=== PATIENT | male | born 1935 | race Caucasian/White ===

== ENCOUNTER 2016-08-15 18:06 | Inpatient (IN) | payer OTHER ==
[~2016-08-15] VITALS: Ht 175.3 cm; Wt 90.4 kg
[2016-08-15] MEDS ORDERED: SODIUM CHLORIDE 0.9% 1,000 ML IVB ONE (20:05)
[2016-08-15 20:16] LABS: Basophils # (auto) 0 uL; Basophils % (auto) 0.2 % (0.0-2.0); Eosinophils # (auto) 0.1 uL; Eosinophils % (auto) 1.5 % (0.0-7.0); Hematocrit 30.1 % (41.0-53.0); Hemoglobin 9.5 g/dL (13.5-17.5); Lymphocytes # (auto) 1.1 uL; Lymphocytes % (auto) 19.8 % (10.0-50.0); Mean Corpuscular Hemoglobin 29.3 pg (28.0-32.0); Mean Corpuscular Hgb Conc. 31.6 g/dL (32.0-36.0); Mean Corpuscular Volume 92.9 fL (80.0-100.0); Mean Platelet Volume 11.9 fL (7.4-10.4); Monocytes # (auto) 0.3 uL; Neutrophils # (auto) 4.1 uL; Neutrophils % (auto) 73.5 % (37.0-80.0); Platelet Count (auto) 67 10^3/uL (140-450); White Blood Cell 5.5 10^3/uL (4.4-10.8)
[2016-08-15 20:23] LABS: Albumin 3.1 g/dL (3.4-5.0); BUN/Creatinine Ratio 27.4; Calcium 8.6 mg/dL (8.5-10.1); Potassium 4.8 mmol/L (3.5-5.1)
[2016-08-15 20:31] LABS: Bilirubin, Total 0.4 mg/dL (0.2-1.0); Total Protein 6.8 g/dL (6.4-8.2)
[2016-08-15 20:33] LABS: INR 1.17 (0.9-1.15); Partial Thromboplastin Time 34.3 sec (22.64-33.71); Prothrombin Time 12.1 sec (9.37-12.3)
[2016-08-15 20:45] LABS: Large Platelets FEW; Platelet Estimate Decreased
[2016-08-15] MEDS ORDERED: PANTOPRAZOLE SODIUM 40 MG/10 ML VIAL IV ONE (22:45)
[2016-08-15 22:46] LABS: Urine Bilirubin Negative (Negative); Urine Color Yellow (Yellow); Urine Glucose Normal (Normal); Urine Hyaline Cast FEW /lpf (0 - 2); Urine Ketone Negative (Negative); Urine Mucus FEW (None Seen); Urine Nitrite Negative (Negative); Urine RBC 11 /hpf (0 - 3); Urine Urobilinogen Normal (Negative); Urine WBC Clumps PRESENT /hpf (None Seen)
[2016-08-15 22:47] LABS: Urine Blood 1+ /uL (Negative)
[2016-08-15] MEDS ORDERED: NOREPINEPHRINE BITARTRATE 250 ML IV ONE (23:38)
[2016-08-15] MEDS ORDERED: NOREPINEPHRINE BITARTRATE 250 ML IV SCH (23:45)
[2016-08-16] VITALS (12 sets, daily range): BP systolic 71–142; BP diastolic 23–79
[2016-08-16] MEDS ORDERED: FUROSEMIDE 40 MG/4 ML VIAL IV ONE (01:00)
[2016-08-16] MEDS ORDERED: NITROGLYCERIN 0.4 MG SL TAB SL PRN (01:00)
[2016-08-16] MEDS ORDERED: PANTOPRAZOLE SODIUM 40 MG/10 ML VIAL IV ONE (01:00)
[2016-08-16] MEDS ORDERED: DEXTROSE (50%) 50ML SYRG IV PRN (01:00)
[2016-08-16] MEDS ORDERED: MORPHINE SULF INJ 2 MG/ML SYRINGE 1ML IV PRN (01:00)
[2016-08-16] MEDS ORDERED: LEVOFLOXACIN 500MG 100 ML IV ONE (01:00)
[2016-08-16] MEDS ORDERED: methylPREDNISolone SOD SUCC 125 MG/2 ML VL IV ONE (01:00)
[2016-08-16] MEDS ORDERED: LACTULOSE 20Gm/30ML SOLN PO PRN (01:00)
[2016-08-16] MEDS ORDERED: cefTRIAXone 1GM/50ML D5W 50 ML IV ONE (01:00)
[2016-08-16 01:55] LABS: Temperature: 21.9 C (20.0-25.0)
[2016-08-16] MEDS ORDERED: ETOMIDATE (2MG/ML) 20ML VIAL IV ONE ×2 (03:02→04:15)
[2016-08-16] MEDS ORDERED: SUCCINYLCHOLINE CHLORIDE 20 MG/ML 10ML VIAL IV ONE ×2 (03:03→04:15)
[2016-08-16] MEDS ORDERED: MIDAZOLAM DRIP 100 mg/100mL NS 100 ML IV ONE (03:13)
[2016-08-16] MEDS: MIDAZOLAM DRIP 100 mg/100mL NS 100 ML IV SCH ×2 (03:29→10:55)
[2016-08-16] MEDS: IPRATROPIUM BROM 0.5 MG/2.5ML INH SOL NEB SCH ×6 (03:50→22:23)
[2016-08-16] MEDS: ALBUTEROL SULF 2.5 MG/0.5ML(0.5%) NEB SOLN NEB SCH ×6 (03:50→22:23)
[2016-08-16] MEDS ORDERED: DOBUTamine 1000MCG/ML 250 ML IV SCH (04:15)
[2016-08-16] MEDS ORDERED: ATROPINE SULF 0.5 MG/5ML SYR IV ONE (05:45)
[2016-08-16] MEDS: ACCU-CHEK COMFORT CURVE STRIP VI SCH ×4 (06:15→23:57)
[2016-08-16] MEDS: InsuLIN REG 1unit/0.01ml Soln (100units/ml) SC SCH ×4 (06:19→23:58)
[2016-08-16] MEDS ORDERED: FURO40TA PO (07:13)
[2016-08-16] MEDS ORDERED: CARV3.1213 OR (07:13)
[2016-08-16] MEDS ORDERED: ATOR20TA50 PO (07:13)
[2016-08-16] MEDS ORDERED: SEVE800T8 PO (07:13)
[2016-08-16] MEDS ORDERED: ALLO100T PO (07:13)
[2016-08-16] MEDS ORDERED: TERA5CAP42 PO (07:14)
[2016-08-16] MEDS ORDERED: BENZ100C97 PO (07:14)
[2016-08-16] MEDS ORDERED: ENOXAPARIN SOD 30 MG/0.3 ML SYRINGE SC SCH (10:00)
[2016-08-16] MEDS: PANTOPRAZOLE SODIUM 40 MG/10 ML VIAL IV SCH (10:03)
[2016-08-16] MEDS ORDERED: FUROSEMIDE 40 MG/4 ML VIAL IV SCH (14:00)
[2016-08-16 15:13] LABS: BUN/Creatinine Ratio 27.3; Calcium 8.9 mg/dL (8.5-10.1); Potassium 4.6 mmol/L (3.5-5.1)
[2016-08-16 15:29] LABS: Basophils # (auto) 0 uL; Basophils % (auto) 0.2 % (0.0-2.0); Eosinophils # (auto) 0 uL; Eosinophils % (auto) 0.1 % (0.0-7.0); Hematocrit 29.7 % (41.0-53.0); Hemoglobin 9.4 g/dL (13.5-17.5); Lymphocytes # (auto) 0.9 uL; Lymphocytes % (auto) 8.9 % (10.0-50.0); Mean Corpuscular Hemoglobin 29.1 pg (28.0-32.0); Mean Corpuscular Hgb Conc. 31.7 g/dL (32.0-36.0); Mean Corpuscular Volume 91.7 fL (80.0-100.0); Mean Platelet Volume 12.4 fL (7.4-10.4); Monocytes # (auto) 0 uL; Monocytes % (auto) 0.3 % (0.0-12.0); Neutrophils # (auto) 8.8 uL; Neutrophils % (auto) 90.5 % (37.0-80.0); Platelet Count (auto) 76 10^3/uL (140-450); Red Cell Distribution Width 17.4 % (11.6-16.0); SUSPECT VIEW TRANSMISSION; White Blood Cell 9.8 10^3/uL (4.4-10.8)
[2016-08-17] VITALS (25 sets, daily range): BP systolic 101–148; BP diastolic 47–82
[2016-08-17] MEDS ORDERED: LEVOFLOXACIN 250MG 50 ML IV SCH (01:00)
[2016-08-17] MEDS: cefTRIAXone 1GM/50ML D5W 50 ML IV SCH (01:08)
[2016-08-17] MEDS: ALBUTEROL SULF 2.5 MG/0.5ML(0.5%) NEB SOLN NEB SCH ×6 (02:18→22:56)
[2016-08-17] MEDS: IPRATROPIUM BROM 0.5 MG/2.5ML INH SOL NEB SCH ×6 (02:18→22:56)
[2016-08-17 04:11] LABS: Basophils # (auto) 0 uL; Basophils % (auto) 0.1 % (0.0-2.0); Eosinophils # (auto) 0 uL; Hemoglobin 9.3 g/dL (13.5-17.5); Lymphocytes # (auto) 0.9 uL; Mean Corpuscular Hemoglobin 29.3 pg (28.0-32.0); Mean Corpuscular Volume 91.4 fL (80.0-100.0); Mean Platelet Volume 11.8 fL (7.4-10.4); Monocytes # (auto) 0.2 uL; Monocytes % (auto) 2.1 % (0.0-12.0); Neutrophils # (auto) 10.6 uL; Neutrophils % (auto) 89.8 % (37.0-80.0); Platelet Count (auto) 88 10^3/uL (140-450); Red Cell Distribution Width 17.9 % (11.6-16.0); SUSPECT VIEW TRANSMISSION; White Blood Cell 11.8 10^3/uL (4.4-10.8)
[2016-08-17 04:32] LABS: Albumin 2.7 g/dL (3.4-5.0); Bilirubin, Total 0.4 mg/dL (0.2-1.0); Calcium 8.8 mg/dL (8.5-10.1); Potassium 4.8 mmol/L (3.5-5.1); Total Protein 5.8 g/dL (6.4-8.2)
[2016-08-17] MEDS ORDERED: ALBUMIN 25% 100 ML IV ONE (05:45)
[2016-08-17] MEDS ORDERED: FUROSEMIDE 20 MG/2 ML VIAL IV ONE (05:45)
[2016-08-17] MEDS: ACCU-CHEK COMFORT CURVE STRIP VI SCH ×2 (06:32→11:18)
[2016-08-17] MEDS: InsuLIN REG 1unit/0.01ml Soln (100units/ml) SC SCH ×3 (06:33→18:00)
[2016-08-17] MEDS: PANTOPRAZOLE SODIUM 40 MG/10 ML VIAL IV SCH (10:06)
[2016-08-17] MEDS ORDERED: MIDAZOLAM DRIP 100 mg/100mL NS 100 ML IV ONE (12:18)
[2016-08-17] MEDS: MIDAZOLAM DRIP 100 mg/100mL NS 100 ML IV SCH ×3 (12:37→23:02)
[2016-08-17] MEDS: D5W 5% 1,000 ML IV SCH (12:45)
[2016-08-17 19:48] LABS: Basophils # (auto) 0 uL; Basophils % (auto) 0.1 % (0.0-2.0); Eosinophils # (auto) 0 uL; Hematocrit 29.8 % (41.0-53.0); Hemoglobin 9.6 g/dL (13.5-17.5); Lymphocytes # (auto) 1.5 uL; Lymphocytes % (auto) 13.3 % (10.0-50.0); Mean Corpuscular Hemoglobin 29.2 pg (28.0-32.0); Mean Corpuscular Hgb Conc. 32.1 g/dL (32.0-36.0); Mean Platelet Volume 11.7 fL (7.4-10.4); Monocytes # (auto) 0.6 uL; Monocytes % (auto) 5.3 % (0.0-12.0); Neutrophils # (auto) 9.4 uL; Neutrophils % (auto) 81.3 % (37.0-80.0); Platelet Count (auto) 87 10^3/uL (140-450); Red Cell Distribution Width 18.3 % (11.6-16.0); SUSPECT VIEW TRANSMISSION; White Blood Cell 11.6 10^3/uL (4.4-10.8)
[2016-08-17 20:02] LABS: BUN/Creatinine Ratio 25.7; Calcium 8.8 mg/dL (8.5-10.1); Potassium 4.6 mmol/L (3.5-5.1)
[2016-08-18] VITALS (94 sets, daily range): BP systolic 109–156; BP diastolic 49–106
[2016-08-18] MEDS: ACCU-CHEK COMFORT CURVE STRIP VI SCH ×6 (00:11→23:28)
[2016-08-18] MEDS: cefTRIAXone 1GM/50ML D5W 50 ML IV SCH (01:08)
[2016-08-18] MEDS: ALBUTEROL SULF 2.5 MG/0.5ML(0.5%) NEB SOLN NEB SCH ×6 (02:35→22:32)
[2016-08-18] MEDS: IPRATROPIUM BROM 0.5 MG/2.5ML INH SOL NEB SCH ×6 (02:35→22:32)
[2016-08-18 03:49] LABS: Basophils # (auto) 0 uL; Basophils % (auto) 0.2 % (0.0-2.0); Eosinophils # (auto) 0 uL; Hemoglobin 9.3 g/dL (13.5-17.5); Lymphocytes # (auto) 1.9 uL; Lymphocytes % (auto) 18.3 % (10.0-50.0); Mean Corpuscular Hemoglobin 29.1 pg (28.0-32.0); Mean Corpuscular Hgb Conc. 32.1 g/dL (32.0-36.0); Mean Corpuscular Volume 90.7 fL (80.0-100.0); Mean Platelet Volume 11.8 fL (7.4-10.4); Monocytes # (auto) 0.6 uL; Monocytes % (auto) 5.7 % (0.0-12.0); Neutrophils # (auto) 7.8 uL; Neutrophils % (auto) 75.8 % (37.0-80.0); Platelet Count (auto) 87 10^3/uL (140-450); Red Cell Distribution Width 18.2 % (11.6-16.0); SUSPECT VIEW TRANSMISSION; White Blood Cell 10.2 10^3/uL (4.4-10.8)
[2016-08-18 04:18] LABS: Albumin 2.9 g/dL (3.4-5.0); Bilirubin, Total 0.4 mg/dL (0.2-1.0); Calcium 9.2 mg/dL (8.5-10.1); Magnesium 2.5 mg/dL (1.6-2.6); Potassium 4.2 mmol/L (3.5-5.1); Total Protein 5.9 g/dL (6.4-8.2)
[2016-08-18 04:37] LABS: INR 1.27 (0.9-1.15); Prothrombin Time 13.1 sec (9.37-12.3)
[2016-08-18] MEDS: InsuLIN REG 1unit/0.01ml Soln (100units/ml) SC SCH ×5 (05:46→22:00)
[2016-08-18] MEDS: D5W 5% 1,000 ML IV SCH (09:08)
[2016-08-18] MEDS: PANTOPRAZOLE SODIUM 40 MG/10 ML VIAL IV SCH (09:09)
[2016-08-18] MEDS: MIDAZOLAM DRIP 100 mg/100mL NS 100 ML IV SCH (09:09)
[2016-08-18] MEDS ORDERED: D5W IV ONE (11:45)
[2016-08-18] MEDS ORDERED: DOXYCYCLINE HYC IV ONE (11:45)
[2016-08-18] MEDS ORDERED: D5W IV SCH ×2 (11:45→22:00)
[2016-08-18] MEDS ORDERED: DOXYCYCLINE HYC IV SCH ×2 (11:45→22:00)
[2016-08-18] MEDS ORDERED: PERMETHRIN 5 % TOPICAL CREAM 60GM TOP ONE (14:00)
[2016-08-18] MEDS: FLUCONAZOLE 200MG/100ML 100 ML IV SCH (14:09)
[2016-08-18] MEDS: AZITHROMYCIN 500MG/D5W 250ML 250 ML IV SCH (14:09)
[2016-08-18 19:30] LABS: BUN/Creatinine Ratio 25.3; Calcium 8.3 mg/dL (8.5-10.1); Potassium 4.2 mmol/L (3.5-5.1)
[2016-08-18] MEDS ORDERED: MIDAZOLAM DRIP 100 mg/100mL NS 100 ML IV ONE (20:13)
[2016-08-19] VITALS (94 sets, daily range): BP systolic 82–153; BP diastolic 33–82
[2016-08-19] MEDS: cefTRIAXone 1GM/50ML D5W 50 ML IV SCH (00:12)
[2016-08-19] MEDS: ALBUTEROL SULF 2.5 MG/0.5ML(0.5%) NEB SOLN NEB SCH ×5 (02:40→22:21)
[2016-08-19] MEDS: IPRATROPIUM BROM 0.5 MG/2.5ML INH SOL NEB SCH ×4 (02:40→22:21)
[2016-08-19 04:09] LABS: Basophils # (auto) 0 uL; Basophils % (auto) 0.2 % (0.0-2.0); Eosinophils # (auto) 0.1 uL; Eosinophils % (auto) 1.5 % (0.0-7.0); Hematocrit 28.8 % (41.0-53.0); Hemoglobin 9.2 g/dL (13.5-17.5); Lymphocytes # (auto) 1.7 uL; Lymphocytes % (auto) 24.1 % (10.0-50.0); Mean Corpuscular Hemoglobin 29.1 pg (28.0-32.0); Mean Corpuscular Volume 90.7 fL (80.0-100.0); Mean Platelet Volume 11.3 fL (7.4-10.4); Monocytes # (auto) 0.3 uL; Monocytes % (auto) 4.8 % (0.0-12.0); Neutrophils % (auto) 69.4 % (37.0-80.0); Platelet Count (auto) 69 10^3/uL (140-450); Red Cell Distribution Width 17.8 % (11.6-16.0); White Blood Cell 7.2 10^3/uL (4.4-10.8)
[2016-08-19] MEDS: D5W 5% 1,000 ML IV SCH (04:15)
[2016-08-19 04:27] LABS: INR 1.2 (0.9-1.15); Prothrombin Time 12.4 sec (9.37-12.3)
[2016-08-19 04:34] LABS: Calcium 8.5 mg/dL (8.5-10.1); Potassium 4.1 mmol/L (3.5-5.1)
[2016-08-19 04:37] LABS: Albumin 2.8 g/dL (3.4-5.0); BUN/Creatinine Ratio 23.8; Magnesium 2.4 mg/dL (1.6-2.6)
[2016-08-19 04:40] LABS: Bilirubin, Total 0.3 mg/dL (0.2-1.0); Total Protein 5.8 g/dL (6.4-8.2)
[2016-08-19] MEDS: InsuLIN REG 1unit/0.01ml Soln (100units/ml) SC SCH ×3 (05:22→18:00)
[2016-08-19] MEDS: ACCU-CHEK COMFORT CURVE STRIP VI SCH ×3 (05:23→18:12)
[2016-08-19] MEDS: AZITHROMYCIN 500MG/D5W 250ML 250 ML IV SCH (10:13)
[2016-08-19] MEDS: PANTOPRAZOLE SODIUM 40 MG/10 ML VIAL IV SCH (10:13)
[2016-08-19] MEDS: D5W/SOD CHL 0.45%/KCL 20MEQ 1,000 ML IV SCH ×2 (13:50→22:33)
[2016-08-19] MEDS: FLUCONAZOLE 200MG/100ML 100 ML IV SCH (14:13)
[2016-08-20] VITALS (39 sets, daily range): BP systolic 103–178; BP diastolic 41–95
[2016-08-20] MEDS: cefTRIAXone 1GM/50ML D5W 50 ML IV SCH (00:49)
[2016-08-20] MEDS: ALBUTEROL SULF 2.5 MG/0.5ML(0.5%) NEB SOLN NEB SCH ×6 (02:19→22:17)
[2016-08-20] MEDS: IPRATROPIUM BROM 0.5 MG/2.5ML INH SOL NEB SCH ×6 (02:19→22:17)
[2016-08-20] MEDS: ACCU-CHEK COMFORT CURVE STRIP VI SCH ×4 (06:30→17:29)
[2016-08-20] MEDS: InsuLIN REG 1unit/0.01ml Soln (100units/ml) SC SCH ×4 (06:30→17:30)
[2016-08-20] MEDS: AZITHROMYCIN 500MG/D5W 250ML 250 ML IV SCH (10:00)
[2016-08-20 10:49] LABS: BUN/Creatinine Ratio 23.1; Calcium 8.5 mg/dL (8.5-10.1); Potassium 4.3 mmol/L (3.5-5.1)
[2016-08-20] MEDS: PANTOPRAZOLE SODIUM 40 MG/10 ML VIAL IV SCH (11:01)
[2016-08-20] MEDS: FLUCONAZOLE 200MG/100ML 100 ML IV SCH (13:57)
[2016-08-20] MEDS: D5W/SOD CHL 0.45%/KCL 20MEQ 1,000 ML IV SCH (15:55)
[2016-08-20] MEDS ORDERED: LIDOCAINE 1% HCL (LOCAL ANESTH.) INJ 20ML MDV ID ONE (22:15)
[2016-08-21] VITALS (49 sets, daily range): BP systolic 124–166; BP diastolic 53–92
[2016-08-21] MEDS: ACCU-CHEK COMFORT CURVE STRIP VI SCH ×4 (00:17→17:18)
[2016-08-21] MEDS: cefTRIAXone 1GM/50ML D5W 50 ML IV SCH (00:18)
[2016-08-21] MEDS: D5W/SOD CHL 0.45%/KCL 20MEQ 1,000 ML IV SCH ×2 (01:35→17:07)
[2016-08-21] MEDS: ALBUTEROL SULF 2.5 MG/0.5ML(0.5%) NEB SOLN NEB SCH ×6 (02:23→22:12)
[2016-08-21] MEDS: IPRATROPIUM BROM 0.5 MG/2.5ML INH SOL NEB SCH ×6 (02:23→22:12)
[2016-08-21 04:56] LABS: INR 1.4 (0.9-1.15); Prothrombin Time 14.4 sec (9.37-12.3)
[2016-08-21] MEDS: InsuLIN REG 1unit/0.01ml Soln (100units/ml) SC SCH ×4 (06:00→17:17)
[2016-08-21 06:44] LABS: Basophils # (auto) 0 uL; Basophils % (auto) 0.2 % (0.0-2.0); Eosinophils # (auto) 0.2 uL; Eosinophils % (auto) 2.3 % (0.0-7.0); Hematocrit 28.7 % (41.0-53.0); Hemoglobin 9.3 g/dL (13.5-17.5); Lymphocytes # (auto) 1.9 uL; Lymphocytes % (auto) 25.6 % (10.0-50.0); Mean Corpuscular Hemoglobin 29.5 pg (28.0-32.0); Mean Corpuscular Hgb Conc. 32.4 g/dL (32.0-36.0); Mean Corpuscular Volume 90.9 fL (80.0-100.0); Monocytes # (auto) 0.5 uL; Monocytes % (auto) 6.4 % (0.0-12.0); Neutrophils % (auto) 65.5 % (37.0-80.0); Platelet Count (auto) 70 10^3/uL (140-450); Red Cell Distribution Width 17.3 % (11.6-16.0); White Blood Cell 7.6 10^3/uL (4.4-10.8)
[2016-08-21 06:58] LABS: BUN/Creatinine Ratio 23.3; Calcium 8.3 mg/dL (8.5-10.1); Magnesium 2.2 mg/dL (1.6-2.6)
[2016-08-21] MEDS: PANTOPRAZOLE SODIUM 40 MG/10 ML VIAL IV SCH (10:33)
[2016-08-21] MEDS: SODIUM CHLOR 0.9% PF (SALINE LOCK) 10ML VIAL IV SCH ×2 (10:34→22:00)
[2016-08-21] MEDS ORDERED: LEVOFLOXACIN 750MG 150 ML IV ONE (10:45)
[2016-08-21] MEDS: FLUCONAZOLE 200MG/100ML 100 ML IV SCH (13:21)
[2016-08-22] VITALS (48 sets, daily range): BP systolic 133–175; BP diastolic 65–97
[2016-08-22] MEDS: ALBUTEROL SULF 2.5 MG/0.5ML(0.5%) NEB SOLN NEB SCH ×7 (02:25→22:38)
[2016-08-22] MEDS: IPRATROPIUM BROM 0.5 MG/2.5ML INH SOL NEB SCH ×7 (02:25→22:38)
[2016-08-22 04:22] LABS: Basophils # (auto) 0 uL; Basophils % (auto) 0.2 % (0.0-2.0); Eosinophils # (auto) 0.2 uL; Hemoglobin 9.3 g/dL (13.5-17.5); Lymphocytes # (auto) 1.5 uL; Lymphocytes % (auto) 19.4 % (10.0-50.0); Mean Corpuscular Hemoglobin 29.5 pg (28.0-32.0); Mean Corpuscular Hgb Conc. 32.2 g/dL (32.0-36.0); Mean Corpuscular Volume 91.6 fL (80.0-100.0); Mean Platelet Volume 11.1 fL (7.4-10.4); Monocytes # (auto) 0.4 uL; Monocytes % (auto) 5.7 % (0.0-12.0); Neutrophils # (auto) 5.6 uL; Neutrophils % (auto) 71.7 % (37.0-80.0); Platelet Count (auto) 72 10^3/uL (140-450); Red Cell Distribution Width 17.1 % (11.6-16.0); SUSPECT VIEW TRANSMISSION; White Blood Cell 7.9 10^3/uL (4.4-10.8)
[2016-08-22 04:35] LABS: Albumin 2.5 g/dL (3.4-5.0); BUN/Creatinine Ratio 21.6; Calcium 8.3 mg/dL (8.5-10.1)
[2016-08-22 04:38] LABS: Bilirubin, Total 0.4 mg/dL (0.2-1.0); Total Protein 5.8 g/dL (6.4-8.2)
[2016-08-22] MEDS: InsuLIN REG 1unit/0.01ml Soln (100units/ml) SC SCH ×4 (06:00→18:00)
[2016-08-22] MEDS: ACCU-CHEK COMFORT CURVE STRIP VI SCH ×4 (06:06→18:20)
[2016-08-22] MEDS: D5W/SOD CHL 0.45%/KCL 20MEQ 1,000 ML IV SCH ×2 (08:18→22:00)
[2016-08-22] MEDS: SODIUM CHLOR 0.9% PF (SALINE LOCK) 10ML VIAL IV SCH ×2 (10:00→22:00)
[2016-08-22] MEDS: LEVOFLOXACIN 500MG 100 ML IV SCH (10:00)
[2016-08-22] MEDS: PANTOPRAZOLE SODIUM 40 MG/10 ML VIAL IV SCH (10:00)
[2016-08-22] MEDS ORDERED: LEVOFLOXACIN 500MG 100 ML IV SCH (10:00)
[2016-08-22] MEDS: FLUCONAZOLE 200MG/100ML 100 ML IV SCH (14:00)
[2016-08-22] MEDS: MORPHINE SULF INJ 2 MG/ML SYRINGE 1ML IV PRN (22:57)
[2016-08-23] VITALS (63 sets, daily range): BP systolic 104–160; BP diastolic 55–90
[2016-08-23] MEDS: ACETAMINOPHEN 650 mg PER 20 mL UD GT PRN ×2 (01:01→21:31)
[2016-08-23] MEDS: ALBUTEROL SULF 2.5 MG/0.5ML(0.5%) NEB SOLN NEB SCH ×6 (02:29→22:58)
[2016-08-23] MEDS: IPRATROPIUM BROM 0.5 MG/2.5ML INH SOL NEB SCH ×6 (02:29→22:58)
[2016-08-23 03:45] LABS: Albumin 2.5 g/dL (3.4-5.0); BUN/Creatinine Ratio 20.8; Calcium 8.3 mg/dL (8.5-10.1)
[2016-08-23 03:47] LABS: Bilirubin, Total 0.4 mg/dL (0.2-1.0); Total Protein 5.8 g/dL (6.4-8.2)
[2016-08-23] MEDS: InsuLIN REG 1unit/0.01ml Soln (100units/ml) SC SCH ×5 (06:00→23:31)
[2016-08-23] MEDS: ACCU-CHEK COMFORT CURVE STRIP VI SCH ×5 (06:00→23:31)
[2016-08-23] MEDS: PANTOPRAZOLE SODIUM 40 MG/10 ML VIAL IV SCH (09:37)
[2016-08-23] MEDS: SODIUM CHLOR 0.9% PF (SALINE LOCK) 10ML VIAL IV SCH ×2 (09:38→22:00)
[2016-08-23 11:30] LABS: Partial Thromboplastin Time 34.7 sec (22.64-33.71)
[2016-08-23 11:31] LABS: INR 1.35 (0.9-1.15); Prothrombin Time 13.9 sec (9.37-12.3)
[2016-08-23] MEDS: D5W/SOD CHL 0.45%/KCL 20MEQ 1,000 ML IV SCH ×2 (12:32→23:55)
[2016-08-23] MEDS: FLUCONAZOLE 200MG/100ML 100 ML IV SCH (14:34)
[2016-08-23] MEDS: MORPHINE SULF INJ 2 MG/ML SYRINGE 1ML IV PRN (16:20)
[2016-08-23] MEDS: FREE WATER GT SCH ×2 (17:44→22:00)
[2016-08-23 18:40] LABS: Body Fluid Polymorphonuclear 30 %
[2016-08-24] VITALS (55 sets, daily range): BP systolic 112–166; BP diastolic 51–93
[2016-08-24] MEDS: FREE WATER GT SCH ×5 (02:00→18:00)
[2016-08-24] MEDS: IPRATROPIUM BROM 0.5 MG/2.5ML INH SOL NEB SCH ×6 (02:15→22:51)
[2016-08-24] MEDS: ALBUTEROL SULF 2.5 MG/0.5ML(0.5%) NEB SOLN NEB SCH ×6 (02:15→22:52)
[2016-08-24] MEDS: MORPHINE SULF INJ 2 MG/ML SYRINGE 1ML IV PRN (03:57)
[2016-08-24 06:02] LABS: Basophils # (auto) 0 uL; Basophils % (auto) 0.1 % (0.0-2.0); Eosinophils # (auto) 0.2 uL; Eosinophils % (auto) 2.6 % (0.0-7.0); Hematocrit 27.7 % (41.0-53.0); Hemoglobin 8.9 g/dL (13.5-17.5); Lymphocytes # (auto) 1.7 uL; Lymphocytes % (auto) 20.5 % (10.0-50.0); Mean Corpuscular Hemoglobin 29.5 pg (28.0-32.0); Mean Corpuscular Hgb Conc. 32.3 g/dL (32.0-36.0); Mean Corpuscular Volume 91.2 fL (80.0-100.0); Mean Platelet Volume 9.8 fL (7.4-10.4); Monocytes # (auto) 0.6 uL; Monocytes % (auto) 7.1 % (0.0-12.0); Neutrophils # (auto) 5.8 uL; Neutrophils % (auto) 69.7 % (37.0-80.0); Platelet Count (auto) 137 10^3/uL (140-450); Red Cell Distribution Width 17.6 % (11.6-16.0); White Blood Cell 8.3 10^3/uL (4.4-10.8)
[2016-08-24 06:31] LABS: BUN/Creatinine Ratio 20.5; Calcium 7.8 mg/dL (8.5-10.1)
[2016-08-24] MEDS: ACCU-CHEK COMFORT CURVE STRIP VI SCH ×3 (08:00→18:22)
[2016-08-24] MEDS: InsuLIN REG 1unit/0.01ml Soln (100units/ml) SC SCH ×3 (08:00→18:00)
[2016-08-24] MEDS: PANTOPRAZOLE SODIUM 40 MG/10 ML VIAL IV SCH (10:48)
[2016-08-24] MEDS: SODIUM CHLOR 0.9% PF (SALINE LOCK) 10ML VIAL IV SCH ×2 (10:48→22:00)
[2016-08-24] MEDS: LEVOFLOXACIN 500MG 100 ML IV SCH (10:48)
[2016-08-24] MEDS: D5W/SOD CHL 0.45%/KCL 20MEQ 1,000 ML IV SCH (14:20)
[2016-08-24] MEDS ORDERED: MILK OF MAGNESIA 30ML SUSP PO PRN (14:30)
[2016-08-24] MEDS: FLUCONAZOLE 200MG/100ML 100 ML IV SCH (15:00)
[2016-08-24] MEDS: DOXYCYCLINE HYC 100MG/250ML 250 ML IV SCH (15:00)
[2016-08-24] MEDS: DOCUSATE SOD 100 MG CAP PO SCH ×2 (15:02→22:00)
[2016-08-25] VITALS (20 sets, daily range): BP systolic 112–150; BP diastolic 49–94
[2016-08-25] MEDS: DOXYCYCLINE HYC 100MG/250ML 250 ML IV SCH ×2 (01:34→14:10)
[2016-08-25] MEDS: MORPHINE SULF INJ 2 MG/ML SYRINGE 1ML IV PRN (01:34)
[2016-08-25] MEDS: D5W/SOD CHL 0.45%/KCL 20MEQ 1,000 ML IV SCH ×2 (02:35→17:26)
[2016-08-25] MEDS: IPRATROPIUM BROM 0.5 MG/2.5ML INH SOL NEB SCH ×5 (02:47→22:32)
[2016-08-25] MEDS: ALBUTEROL SULF 2.5 MG/0.5ML(0.5%) NEB SOLN NEB SCH ×5 (02:47→22:32)
[2016-08-25 03:52] LABS: Basophils # (auto) 0.1 uL; Basophils % (auto) 1.2 % (0.0-2.0); Eosinophils # (auto) 0.3 uL; Eosinophils % (auto) 4.7 % (0.0-7.0); Hematocrit 29.6 % (41.0-53.0); Hemoglobin 9.5 g/dL (13.5-17.5); Lymphocytes # (auto) 1.9 uL; Lymphocytes % (auto) 26.3 % (10.0-50.0); Mean Corpuscular Hemoglobin 29.6 pg (28.0-32.0); Mean Corpuscular Volume 92.3 fL (80.0-100.0); Mean Platelet Volume 8.7 fL (7.4-10.4); Monocytes # (auto) 0.6 uL; Monocytes % (auto) 7.9 % (0.0-12.0); Neutrophils # (auto) 4.2 uL; Neutrophils % (auto) 59.9 % (37.0-80.0); Platelet Count (auto) 130 10^3/uL (140-450); Red Cell Distribution Width 16.5 % (11.6-16.0); White Blood Cell 7.2 10^3/uL (4.4-10.8)
[2016-08-25 04:04] LABS: BUN/Creatinine Ratio 21.3; Potassium 4.1 mmol/L (3.5-5.1)
[2016-08-25] MEDS: InsuLIN REG 1unit/0.01ml Soln (100units/ml) SC SCH ×4 (06:00→17:32)
[2016-08-25] MEDS: ACCU-CHEK COMFORT CURVE STRIP VI SCH ×4 (06:13→17:32)
[2016-08-25] MEDS: SODIUM CHLOR 0.9% PF (SALINE LOCK) 10ML VIAL IV SCH ×2 (10:00→22:00)
[2016-08-25] MEDS: PANTOPRAZOLE SODIUM 40 MG/10 ML VIAL IV SCH (10:00)
[2016-08-25] MEDS: DOCUSATE SOD 100 MG CAP PO SCH ×2 (10:00→23:03)
[2016-08-25] MEDS: FLUCONAZOLE 200MG/100ML 100 ML IV SCH (14:30)
[2016-08-26] MEDS: ACCU-CHEK COMFORT CURVE STRIP VI SCH ×3 (00:26→12:00)
[2016-08-26] MEDS: ACETAMINOPHEN 650 mg PER 20 mL UD GT PRN (00:48)
[2016-08-26] MEDS: DOXYCYCLINE HYC 100MG/250ML 250 ML IV SCH ×2 (02:03→13:42)
[2016-08-26 05:05] VITALS: BP 140/70
[2016-08-26] MEDS: D5W/SOD CHL 0.45%/KCL 20MEQ 1,000 ML IV SCH (05:15)
[2016-08-26] MEDS: IPRATROPIUM BROM 0.5 MG/2.5ML INH SOL NEB SCH ×4 (05:17→13:39)
[2016-08-26] MEDS: ALBUTEROL SULF 2.5 MG/0.5ML(0.5%) NEB SOLN NEB SCH ×4 (05:18→13:39)
[2016-08-26] MEDS: InsuLIN REG 1unit/0.01ml Soln (100units/ml) SC SCH ×3 (06:00→12:00)
[2016-08-26 06:23] LABS: Basophils # (auto) 0 uL; Basophils % (auto) 0.4 % (0.0-2.0); DEFINITIVE VIEW TRANSMISSION; Eosinophils # (auto) 0.3 uL; Eosinophils % (auto) 5.1 % (0.0-7.0); Hematocrit 24.7 % (41.0-53.0); Hemoglobin 7.5 g/dL (13.5-17.5); Lymphocytes % (auto) 18.7 % (10.0-50.0); Mean Corpuscular Hemoglobin 29.1 pg (28.0-32.0); Mean Corpuscular Hgb Conc. 30.5 g/dL (32.0-36.0); Mean Corpuscular Volume 95.3 fL (80.0-100.0); Mean Platelet Volume 9.8 fL (7.4-10.4); Monocytes # (auto) 0.4 uL; Monocytes % (auto) 6.5 % (0.0-12.0); Neutrophils # (auto) 3.8 uL; Neutrophils % (auto) 69.3 % (37.0-80.0); Platelet Count (auto) 129 10^3/uL (140-450); Red Cell Distribution Width 18.6 % (11.6-16.0); White Blood Cell 5.6 10^3/uL (4.4-10.8)
[2016-08-26] MEDS: MORPHINE SULF INJ 2 MG/ML SYRINGE 1ML IV PRN (08:38)
[2016-08-26 09:00] VITALS: BP_SYST 138; BP_SYST 140; BP_DIAS 69
[2016-08-26 09:22] LABS: Potassium 4.3 mmol/L (3.5-5.1)
[2016-08-26 09:23] LABS: BUN/Creatinine Ratio 23.1; Calcium 8.4 mg/dL (8.5-10.1)
[2016-08-26] MEDS: SODIUM CHLOR 0.9% PF (SALINE LOCK) 10ML VIAL IV SCH (10:00)
[2016-08-26] MEDS: PANTOPRAZOLE SODIUM 40 MG/10 ML VIAL IV SCH (10:36)
[2016-08-26] MEDS: DOCUSATE SOD 100 MG CAP PO SCH (10:36)
[2016-08-26 13:00] VITALS: BP 140/69
[2016-08-26] MEDS: FLUCONAZOLE 200MG/100ML 100 ML IV SCH (13:42)
[2016-08-26 15:44] VITALS: BP 140/69
[2016-08-26 16:40] VITALS: BP 152/72
== END 2016-08-26 17:00 | disposition home health service (06) | DRG 870 ==
LOC: ER 18:06 → TELE 18:07 → ICU WEST 08-17 16:53 → TELE-CENTR 08-25 17:26
PROVIDERS: ADMIT Family Medicine; ATTEND Family Medicine
PROC: 02HV33Z Insertion of Infusion Device into Superior Vena Cava, Percutaneous Approach (ICD-10-PCS; 2016-08-19)
PROC: 0W993ZZ Drainage of Right Pleural Cavity, Percutaneous Approach (ICD-10-PCS; 2016-08-23)
PROC: 5A1955Z Respiratory Ventilation, Greater than 96 Consecutive Hours (ICD-10-PCS; principal; 2016-08-24)
PROC: 0BH18EZ Insertion of Endotracheal Airway into Trachea, Via Natural or Artificial Opening Endoscopic (ICD-10-PCS; 2016-08-24)
DX: A41.9 Sepsis, unspecified organism (principal); J18.9 Pneumonia, unspecified organism; J96.01 Acute respiratory failure with hypoxia; N18.6 End stage renal disease; G92 Toxic encephalopathy; G82.50 Quadriplegia, unspecified; I50.33 Acute on chronic diastolic (congestive) heart failure; E46 Unspecified protein-calorie malnutrition; E87.0 Hyperosmolality and hypernatremia; E87.1 Hypo-osmolality and hyponatremia; K92.2 Gastrointestinal hemorrhage, unspecified; I13.2 Hypertensive heart and chronic kidney disease with heart failure and with stage 5 chronic kidney disease, or end stage renal disease; N39.0 Urinary tract infection, site not specified; J98.11 Atelectasis; N17.9 Acute kidney failure, unspecified; L03.119 Cellulitis of unspecified part of limb; J90 Pleural effusion, not elsewhere classified; G95.9 Disease of spinal cord, unspecified; I42.9 Cardiomyopathy, unspecified; D63.8 Anemia in other chronic diseases classified elsewhere; D69.6 Thrombocytopenia, unspecified; E11.22 Type 2 diabetes mellitus with diabetic chronic kidney disease; E11.65 Type 2 diabetes mellitus with hyperglycemia; E86.0 Dehydration; J45.909 Unspecified asthma, uncomplicated; M48.02 Spinal stenosis, cervical region; I25.10 Atherosclerotic heart disease of native coronary artery without angina pectoris; K40.90 Unilateral inguinal hernia, without obstruction or gangrene, not specified as recurrent; K82.8 Other specified diseases of gallbladder; N21.0 Calculus in bladder; N28.1 Cyst of kidney, acquired; E78.5 Hyperlipidemia, unspecified; N20.0 Calculus of kidney; N28.81 Hypertrophy of kidney; Z86.73 Personal history of transient ischemic attack (TIA), and cerebral infarction without residual deficits; Z99.2 Dependence on renal dialysis; Z89.412 Acquired absence of left great toe; Z85.830 Personal history of malignant neoplasm of bone
CPT/HCPCS: 36415; 36569; 36600; 70450; 70490; 71010; 72141; 73700; 74176; 76604; 76942; 80048; 80053; 80061; 81001; 82550; 82805; 82962; 83036; 83605; 83615; 83735; 83880; 84155; 84484; 85025; 85610; 85730; 87040; 87070; 87077; 87081; 87086; 87186; 87205; 89051; 93005; 93306; 94002; 94003; 94640; 95819; 96365; 96368; 96375; 96376; 97001; C9113; G0434; J0330; J0461; J0696; J1450; J1815; J1956; J3490; J7042